=== PATIENT | male | born 1980 | race Caucasian/White ===

== ENCOUNTER 2017-09-12 08:38 | Emergency (ER) | payer SELFPAY ==
[~2017-09-12] VITALS: Ht 177.8 cm; Wt 45.4 kg
[~2017-09-12 08:38] MED LIST: DAYPRO600 M1 PO; MOTRIN800 MG PO; ROBAXIN750 MG PO; ULTRAM50 MG PO; VICODIN 500 MG-1 TAB PO
[2017-09-12 08:51] VITALS: BP 105/73
[2017-09-12 09:26] LABS: BASO % 0.4 % (0.0-1.0); EOS # 0.1 10*3/uL (0.0-0.4); EOS % 1.3 % (1.0-4.0); HEMATOCRIT 44.2 % (42.0-52.0); HEMOGLOBIN 14.7 g/dl (14.0-18.0); LYMPH # 0.7 10*3/uL (1.3-4.4); LYMPH % 8.7 % (27.0-41.0); MEAN CELL VOLUME 91.9 fl (80.0-94.0); MEAN CORPUSCULAR HGB 30.6 pg (27.0-31.0); MEAN CORPUSCULAR HGB CONC 33.3 g/dl (33.0-37.0); MEAN PLATELET VOLUME 9.6 fl (9.6-12.3); MONO # 0.6 10*3/uL (0.1-1.0); MONO % 7.3 % (3.0-9.0); NEUT # 6.4 10*3/uL (2.3-7.9); PLATELET COUNT AUTOMATED 189 10*3/uL (130-400); RED BLOOD COUNT 4.81 10*6/uL (4.50-5.90); RED CELL DISTRI WIDTH 15.5 % (0-14.5); WHITE BLOOD COUNT 7.8 10*3/uL (4.8-10.8)
[2017-09-12 09:33] LABS: BILIRUBIN NEGATIVE (NEGATIVE); BLOOD NEGATIVE (NEGATIVE); CLARITY CLEAR (CLEAR); COLOR YELLOW (YELLOW); GLUCOSE NEGATIVE (NEGATIVE); KETONE TRACE (NEGATIVE); LEUKO ESTERASE NEGATIVE (NEGATIVE); NITRITE NEGATIVE (NEGATIVE); SPECIFIC GRAVITY >= 1.030 (1.005-1.030); UROBILINOGEN 0.2 E.U./dl (0.2-1.0)
[2017-09-12] MEDS ORDERED: PROMETHAZINE25 M1 PO (09:34)
[2017-09-12] MEDS ORDERED: PRILOSEC20 M1 PO (09:35)
[2017-09-12] MEDS ORDERED: ZANTAC 150150 MG PO ×2 (09:35→11:00)
[2017-09-12] MEDS ORDERED: METHADONE (09:40)
[2017-09-12 09:42] LABS: ALBUMIN 3.2 gm/dl (3.1-4.5); ALKALINE PHOSPHATASE 84 U/L (45-117); BACTERIA TRACE; BUN 19 mg/dl (7-24); CALCIUM OXALATE CRYSTALS 2+; CHLORIDE 109 mmol/L (98-107); CREATININE 1.05 mg/dL (0.70-1.30); EPITHELIAL CELLS 0-2; LIPASE 568 U/L (73-393); MAGNESIUM 2.1 mg/dL (1.5-2.1); POTASSIUM 3.5 mmol/L (3.5-5.1); SGOT/AST 21 IU/L (3-35); SGPT/ALT 39 U/L (12-78); SODIUM 140 mmol/L (136-145); TOTAL PROTEIN 6.2 gm/dL (6.4-8.2); WBC 0-2 wbc/hpf (0-5)
[2017-09-12] MEDS ORDERED: PHENERGAN25 M3 PO (11:00)
== END 2017-09-12 11:37 | disposition home or self-care (01) ==
LOC: ED 08:38
PROVIDERS: Emergency Medicine
DX: R11.2 Nausea with vomiting, unspecified (principal); R10.84 Generalized abdominal pain; F17.200 Nicotine dependence, unspecified, uncomplicated; Z98.890 Other specified postprocedural states; Z88.5 Allergy status to narcotic agent

== ENCOUNTER 2018-04-06 19:47 | Emergency (ER) | payer OTHER ==
[~2018-04-06] VITALS: Ht 175.2 cm; Wt 45.4 kg
[~2018-04-06 19:47] MED LIST changes: +METHADONE; +PHENERGAN25 M3 PO; +PRILOSEC20 M1 PO; +PROMETHAZINE25 M1 PO; +ZANTAC 150150 MG PO
[2018-04-06] MEDS ORDERED: MEGACE40 MG PO (19:58)
[2018-04-06] MEDS ORDERED: PROVENTIL HFA6.7 GM INH (19:59)
[2018-04-06] MEDS ORDERED: ATROVENT HFA12.9 GM INH (20:00)
[2018-04-06 20:17] LABS: BASO % 0.3 % (0.0-1.0); EOS % 0.4 % (1.0-4.0); HEMATOCRIT 44.1 % (42.0-52.0); LYMPH # 0.8 10*3/uL (1.3-4.4); LYMPH % 11.7 % (27.0-41.0); MEAN CELL VOLUME 93.6 fl (80.0-94.0); MEAN CORPUSCULAR HGB 29.7 pg (27.0-31.0); MEAN CORPUSCULAR HGB CONC 31.7 g/dl (33.0-37.0); MEAN PLATELET VOLUME 9.6 fl (9.6-12.3); MONO # 0.6 10*3/uL (0.1-1.0); MONO % 8.1 % (3.0-9.0); NEUT # 5.7 10*3/uL (2.3-7.9); NEUT % 79.2 % (47.0-73.0); PLATELET COUNT AUTOMATED 216 10*3/uL (130-400); RED BLOOD COUNT 4.71 10*6/uL (4.50-5.90); RED CELL DISTRI WIDTH 14.6 % (0-14.5); WHITE BLOOD COUNT 7.2 10*3/uL (4.8-10.8)
[2018-04-06 20:32] LABS: ACT PARTIAL THROMBO TIME 22.4 SECONDS (20.8-31.5); INTERNATIONAL NORM RATIO 0.9 (2.0-3.5)
[2018-04-06 20:33] LABS: ALBUMIN 2.9 gm/dl (3.1-4.5); ALKALINE PHOSPHATASE 94 U/L (45-117); BUN 15 mg/dl (7-24); CHLORIDE 107 mmol/L (98-107); CREATININE 1.06 mg/dL (0.70-1.30); LIPASE 200 U/L (73-393); POTASSIUM 4.1 mmol/L (3.5-5.1); SGOT/AST 37 IU/L (3-35); SGPT/ALT 46 U/L (12-78); SODIUM 143 mmol/L (136-145); TOTAL PROTEIN 5.8 gm/dL (6.4-8.2)
[2018-04-06 20:35] LABS: TROPONIN I < 0.015 ng/ml (<0.045)
[2018-04-06 22:45] VITALS: BP 110/77
[2018-04-06 23:30] LABS: BILIRUBIN NEGATIVE (NEGATIVE); BLOOD NEGATIVE (NEGATIVE); CLARITY SL CLOUDY (CLEAR); COLOR YELLOW (YELLOW); GLUCOSE NEGATIVE (NEGATIVE); KETONE NEGATIVE (NEGATIVE); LEUKO ESTERASE NEGATIVE (NEGATIVE); NITRITE NEGATIVE (NEGATIVE); UROBILINOGEN 0.2 E.U./dl (0.2-1.0)
[2018-04-06 23:35] LABS: BACTERIA 3+; MUCOUS 1+
[2018-04-06 23:36] LABS: EPITHELIAL CELLS 0-2
== END 2018-04-06 23:40 | disposition left against medical advice (07) ==
LOC: ED 19:47
PROVIDERS: Emergency Medicine
DX: C41.9 Malignant neoplasm of bone and articular cartilage, unspecified (principal); C34.90 Malignant neoplasm of unspecified part of unspecified bronchus or lung; Z88.5 Allergy status to narcotic agent

== ENCOUNTER → 2018-09-08 | Outpatient (CLI) | payer OTHER ==
[~2018-09-08] MED LIST changes: +ATROVENT HFA12.9 GM INH; +MEGACE40 MG PO; +PROVENTIL HFA6.7 GM INH
== END | disposition home or self-care (01) ==
LOC: CT 09-04 14:00
DX: R91.8 Other nonspecific abnormal finding of lung field (principal); R06.02 Shortness of breath

== ENCOUNTER 2019-03-15 10:43 | Emergency (ER) | payer OTHER ==
[~2019-03-15] VITALS: Ht 177.8 cm; Wt 47.6 kg
[2019-03-15 10:44] VITALS: BP 121/80
[2019-03-15] MEDS ORDERED: ZITHROMAX250 MG PO (12:45)
[2019-03-15] MEDS ORDERED: ROBITUSSIN DM 105 ML PO (12:45)
[2019-03-15] MEDS ORDERED: PREDNISONE50 MG PO (12:45)
[2019-03-15] MEDS ORDERED: PROAIR HFA8.5 GM INH (13:10)
== END 2019-03-15 12:47 | disposition home or self-care (01) ==
LOC: ED 10:43
DX: J20.9 Acute bronchitis, unspecified (principal); F17.200 Nicotine dependence, unspecified, uncomplicated; Z79.899 Other long term (current) drug therapy; Z88.6 Allergy status to analgesic agent; Z85.118 Personal history of other malignant neoplasm of bronchus and lung

== ENCOUNTER 2019-03-17 11:22 | Emergency (ER) | payer OTHER ==
[~2019-03-17] VITALS: Ht 175.2 cm; Wt 46.5 kg
[2019-03-17 11:22] VITALS: BP 141/84
[~2019-03-17 11:22] MED LIST changes: +PREDNISONE50 MG PO; +PROAIR HFA8.5 GM INH; +ROBITUSSIN DM 105 ML PO; +ZITHROMAX250 MG PO
[2019-03-17 12:04] LABS: BASO % 0.2 % (0.0-1.0); EOS % 0.1 % (1.0-4.0); HEMATOCRIT 46.7 % (42.0-52.0); HEMOGLOBIN 15.6 g/dl (14.0-18.0); LYMPH # 1.1 10*3/uL (1.3-4.4); LYMPH % 10.5 % (27.0-41.0); MEAN CELL VOLUME 93.4 fl (80.0-94.0); MEAN CORPUSCULAR HGB 31.2 pg (27.0-31.0); MEAN CORPUSCULAR HGB CONC 33.4 g/dl (33.0-37.0); MONO # 1.1 10*3/uL (0.1-1.0); MONO % 10.7 % (3.0-9.0); NEUT % 78.1 % (47.0-73.0); PLATELET COUNT AUTOMATED 219 10*3/uL (130-400); RED CELL DISTRI WIDTH 15.1 % (0-14.5); WHITE BLOOD COUNT 10.2 10*3/uL (4.8-10.8)
[2019-03-17 12:14] LABS: INTERNATIONAL NORM RATIO 0.9 (2.0-3.5)
[2019-03-17 12:19] LABS: ALBUMIN 3.3 gm/dl (3.1-4.5); ALKALINE PHOSPHATASE 92 U/L (45-117); BUN 15 mg/dl (7-24); CHLORIDE 105 mmol/L (98-107); CREATININE 0.93 mg/dL (0.70-1.30); LIPASE 77 U/L (73-393); POTASSIUM 3.4 mmol/L (3.5-5.1); SGOT/AST 25 IU/L (3-35); SGPT/ALT 50 U/L (12-78); SODIUM 139 mmol/L (136-145)
[2019-03-17] MEDS ORDERED: ZOFRAN4 MG PO (14:17)
[2019-03-17] MEDS ORDERED: ALBUTEROL2.5 MG/0.5 INH (14:17)
== END 2019-03-17 14:29 | disposition home or self-care (01) ==
LOC: ED 11:22
PROVIDERS: Physician Assistant
DX: R11.2 Nausea with vomiting, unspecified (principal); R10.9 Unspecified abdominal pain; C34.90 Malignant neoplasm of unspecified part of unspecified bronchus or lung; F17.200 Nicotine dependence, unspecified, uncomplicated; Z88.5 Allergy status to narcotic agent; Z79.899 Other long term (current) drug therapy